=== PATIENT | male | born 1965 | race Caucasian/White ===

== ENCOUNTER 2020-08-11 23:18 | Emergency (ER) | payer OTHER ==
[2020-08-12 00:18] LABS: BUN/CREATININE RATIO 15 (0-10)
[2020-08-12 00:36] LABS: HEMOGLOBIN 14.1 gm/dl (14.0-17.5); RED BLOOD COUNT 4.73 M/UL (4.20-5.50); WHITE BLOOD COUNT 11.5 K/UL (4.5-11.0)
[2020-08-12] MEDS ORDERED: ZOFRAN ODT 4 MG4 MG SL (05:48)
[2020-08-12] MEDS ORDERED: BENADRYL 50MG C50 MG PO (05:48)
== END 2020-08-12 05:52 | disposition home or self-care (01) ==
LOC: ER1 23:18 → CDU 08-12 03:17 → ER1 08-12 05:52
PROVIDERS: Emergency Medicine
DX: I95.9 Hypotension, unspecified (principal); E87.6 Hypokalemia; N17.9 Acute kidney failure, unspecified; T61.11XA Scombroid fish poisoning, accidental (unintentional), initial encounter
CPT/HCPCS: 71045; 80048; 80053; 82550; 82553; 83605; 83690; 83735; 83874; 84484; 85025; 93005; 96372; 96374; 96375; 99284; J0171; J1200; J2405